=== PATIENT | male | born 1985 | race Caucasian/White ===

== ENCOUNTER 2018-10-11 19:10 | Emergency (ER) | payer SELFPAY ==
[~2018-10-11] VITALS: Ht 162.5 cm; Wt 56.7 kg
[~2018-10-11 19:10] MED LIST: CIPROFLOXACIN500 MG PO; Lortab 5/500 501 TAB PO; MOTRIN800 MG PO; NKHM; VICODIN 500 MG-1 TAB PO; VICODIN ES 7501 TAB PO; ZOFRAN ODT4 MG SL
[2018-10-11] MEDS ORDERED: Bactroban Oint22 GM T (19:36)
[2018-10-11] MEDS ORDERED: CLINDAMYCIN150 MG PO (19:36)
== END 2018-10-11 19:45 | disposition home or self-care (01) ==
LOC: ED 19:10
DX: K02.9 Dental caries, unspecified (principal); M25.562 Pain in left knee; M25.572 Pain in left ankle and joints of left foot; R23.8 Other skin changes; R51 Headache; F17.200 Nicotine dependence, unspecified, uncomplicated